=== PATIENT | female | born 1940 | race Caucasian/White ===

== ENCOUNTER 2018-04-15 06:57 | Day surgery (SDC) | payer OTHER, BC ==
--- OUTSIDE RECORDS SUMMARY | 2018-04-15 07:01 | XMS REPORT ---
:1940 [facility] Organization [facility] Address [address] [place] [address] Dr. Patterson [address] [place] [id number] Care Team Providers Name Role Phone IZZY ARIAS Primary Care Provider Unavailable IZZY ARIAS M.D. Unavailable Unavailable Problems This patient has no known problems. Allergies, Adverse Reactions, Alerts This patient has no known allergies or adverse reactions. Medications This patient has no known medications. Results Test Description Test Time Test Comments Text Results Atomic Results Result Comments POC Glucose, Blood 2017-08-10 08:32:00 Test Item Value Reference Range Comments POC Glucose (test code=POCGLUC) 131 mg/dL 70-115 If you consider your patient critically ill, the [facility] Accu-Chek InformII metershould not be used for Glucose determinations.Draw a venous Glucose and send to the Main Lab for Analysis.
[2018-04-15] MEDS ORDERED: NA CHLORIDE 0.9% 500 ML ONE (07:11)
[2018-04-15 07:21] LABS: Protime INR 1.06
[2018-04-15] MEDS ORDERED: TETRACAINE HCL 0.5% 2ML OPTH ONE (07:21)
[2018-04-15] MEDS ORDERED: BUPIVACAINE 0.25% PF 10 ML VIAL ONE (07:21)
[2018-04-15] MEDS ORDERED: LIDOCAINE 2% MPF 5 ML VIAL ONE (07:21)
[2018-04-15] MEDS ORDERED: LIDOCAINE HCL/PF 3.5% OPTH GEL ONE (07:22)
[2018-04-15] MEDS: PHENYLEPHRINE 10% OPTH 5ML ONE ×2 (07:35→07:45)
[2018-04-15] MEDS: CYCLOPENTOLATE 1% OPTH 2 ML ONE ×3 (07:35→07:45)
[2018-04-15] MEDS: MOXIFLOXACIN HCL 10 DROPS/ML **OR USE OPTH ONE ×4 (07:35→09:25)
[2018-04-15] MEDS ORDERED: NS 0.9% VIAL 10 ML ONE (07:41)
[2018-04-15] MEDS ORDERED: EPINEPHRINE/PF 1 MG/ML AMP ONE (07:41)
[2018-04-15] MEDS ORDERED: BALANCED SALT IRRIG PLAIN 500 ML BTL IRR ONE (07:42)
[2018-04-15] MEDS ORDERED: DUOVISC 1 KIT OPTH ONE (07:44)
[2018-04-15] MEDS ORDERED: MIDAZOLAM HCL 2 MG/2 ML INJ ONE (08:35)
[2018-04-15] MEDS ORDERED: FENTANYL CITR 100 MCG/2 ML ONE (08:35)
--- NOTE | 2018-04-15 09:46 | P.BOP ---
Preoperative diagnosis: Nuclear sclerotic cataract and regular astigmatism OD Postoperative diagnosis: Same Primary procedure: Phacoemulsification with Toric IOL OD Estimated blood loss: None Anesthesia: Local (Topical with anesthesia for cataract surgery) Complications: None Implants: SN6AT5 +20.5 @ 8 degrees Transferred to: Other (Day surgery) Condition: Good
[2018-04-15] MEDS ORDERED: LIDOCAINE 1% MPF 2 ML AMPULE ONE (10:00)
--- NOTE | 2018-04-15 20:33 | OP ---
Date of Procedure: 04/15/2018 Surgeon: Bouchra Love MD Anesthesiologist: 1. Richie Ford CRNA. 2. Aung Montoya M.D. Preoperative Diagnosis: Nuclear sclerotic cataract and regular astigmatism, right eye. Operation Performed: Phacoemulsification with intraocular lens implant, right eye. Anesthesia: Per Cataract Surgery. Complications: None. Description Of Procedure: In the operating room the patient was prepped and draped in the usual sterile fashion for ophthalmic surgery. A lid speculum was placed in the right eye. Two paracentesis sites were made superiorly and inferiorly in the limbal cornea. Viscoat was placed in the anterior chamber and a crescent blade was used to make a corneal groove and tunnel, and a keratome was used to enter the anterior chamber. Provisc was placed in the anterior chamber and a 360 degree capsulotomy was performed with a cystitome. The lens was hydrodissected with BSS and rotated freely. The lens was removed with a stop and chop technique. An 8.54 phaco CDE was used to remove the lens. Residual cortex was removed with the irrigation and aspiration. Provisc was placed in the capsular bag. A SN6AT5 +20.5 at 8 degrees lens was placed in the capsular bag without complications. Irrigation and aspiration was used to remove residual viscoelastic. The paracentesis sites were hydrated with BSS. The wound and paracentesis sites were inspected and found to be watertight. Vigamox 0.07 cc was placed intracamerally at the end of the procedure. The eye was irrigated with balanced salt solution. The eye was patched with a soft cotton patch and Cho metal shield. The patient was returned to day surgery in good condition. Comments: Akten was placed in the eye in day surgery and irrigated out of the eye with BSS in the OR. Preservative-free 1% lidocaine was placed in the anterior chamber prior to Viscoat. Discharge Instructions: Ms. Sepulveda is discharged to home in good condition and is to follow up with Dr. Love. ANGELITO/MARVIN Voice ID: [id number] Report ID: [id number] [id number]
== END 2018-04-15 10:30 | disposition home or self-care (01) ==
LOC: OR 06:57
PROVIDERS: ATTEND Ophthalmology Retina Specialist
PROC: 08RJ3JZ Replacement of Right Lens with Synthetic Substitute, Percutaneous Approach (ICD-10-PCS; principal; 2018-04-15 09:10)
DX: H25.11 Age-related nuclear cataract, right eye (principal); H25.011 Cortical age-related cataract, right eye; H52.221 Regular astigmatism, right eye; H04.123 Dry eye syndrome of bilateral lacrimal glands; E11.319 Type 2 diabetes mellitus with unspecified diabetic retinopathy without macular edema; I10 Essential (primary) hypertension; I25.10 Atherosclerotic heart disease of native coronary artery without angina pectoris; E03.9 Hypothyroidism, unspecified; M06.9 Rheumatoid arthritis, unspecified; Z79.82 Long term (current) use of aspirin; Z88.3 Allergy status to other anti-infective agents; Z95.1 Presence of aortocoronary bypass graft; Z95.5 Presence of coronary angioplasty implant and graft; Z83.518 Family history of other specified eye disorder; Z83.3 Family history of diabetes mellitus
CPT/HCPCS: 36415; 66984; 82962; 85610; J0171; J2250; J3010; J2001; V2787

== ENCOUNTER 2023-04-05 07:33 | Day surgery (SDC) | payer OTHER, BC ==
[2023-04-05] MEDS ORDERED: propofoL 200 MG/20 ML VIAL IV ONE (09:20)
[2023-04-05] MEDS ORDERED: LIDOCAINE 1% MPF 5 ML VIAL ONE (09:21)
[2023-04-05] MEDS ORDERED: NA CHLORIDE 0.9% 1,000 ML ONE (10:53)
[2023-04-05 16:29] VITALS: BP 128/48; TEMP 97.9; O2SAT 95
== END 2023-04-05 10:12 | disposition home or self-care (01) ==
LOC: OR 07:33
PROVIDERS: ATTEND Internal Medicine Gastroenterology
PROC: 0DB78ZX Excision of Stomach, Pylorus, Via Natural or Artificial Opening Endoscopic, Diagnostic (ICD-10-PCS; 2023-04-05)
PROC: 0DB68ZX Excision of Stomach, Via Natural or Artificial Opening Endoscopic, Diagnostic (ICD-10-PCS; 2023-04-05)
PROC: 0DB98ZX Excision of Duodenum, Via Natural or Artificial Opening Endoscopic, Diagnostic (ICD-10-PCS; principal; 2023-04-05 09:00)
DX: K31.A0 Gastric intestinal metaplasia, unspecified (principal); K31.84 Gastroparesis; K21.9 Gastro-esophageal reflux disease without esophagitis; R93.2 Abnormal findings on diagnostic imaging of liver and biliary tract; K29.50 Unspecified chronic gastritis without bleeding
CPT/HCPCS: 43239; 88312; 88313; 82947; 88305; J2704; J2001; J7030